=== PATIENT | female | born 1955 | race Caucasian/White ===

== ENCOUNTER 2017-03-07 15:18 | Emergency (ER) | payer OTHER ==
[~2017-03-07] VITALS: Ht 157.5 cm; Wt 72.7 kg
[2017-03-07 15:18] VITALS: BP 197/84; PULSE 51; RESP 21; O2SAT 97
[2017-03-07 16:07] LABS: BASOPHILS % (AUTO) 0.7 % (0-3); MONOCYTES % (AUTO) 7.6 % (4-12); Mean Corpuscular Hemoglobin 27.8 pg (27.0-35.0); Mean Corpuscular Volume 83.3 fL (81-100); NEUTROPHILS % (AUTO) 68.1 % (40-74); Platelet Count 313 bil/L (150-400)
[2017-03-07 16:08] VITALS: BP 176/68; PULSE 53; RESP 18; O2SAT 97
[2017-03-07 16:35] LABS: Magnesium 1.9 mg/dL (1.6-2.6)
[2017-03-07 16:37] LABS: TROPONIN T < 0.010 ug/L (0.0-0.011)
--- NOTE | 2017-03-07 16:39 | DRSVH ---
PROCEDURE: X-RAY CHEST ONE VIEW, PORTABLE ([id number]) INDICATIONS: cp TECHNIQUE: One view of the chest was acquired. COMPARISON: None. FINDINGS: Surgical changes and devices: None. Lungs and pleura: No pleural effusions or pneumothorax. Lungs are clear. Mediastinum: Mediastinal contours appear normal. Heart size is normal. Bones and chest wall: No suspicious bony lesions. Overlying soft tissues appear unremarkable. IMPRESSION: Mildly reduced inspiratory volume, no trauma found, source of chest pain is not seen. Dictated by: Jose Manuel Parada M.D. on 03/07/2017 at 16:37 Approved by: Jose Manuel Parada M.D. on 03/07/2017 at 16:37
--- NOTE | 2017-03-07 16:44 | ED.REPORT ---
HPI-General Illness Date of Service Mar 07, 2017 ED Provider: Sunil Wood MD The patient is a 61 year old female who presents to the ED from her PCP office following a hypertensive episode that began this morning. She reordered her BP this morning at 201/108. Associated symptoms include transient diaphoresis without exertion, nonvertiginous dizziness, nausea, anxiety. Patient currently takes Lisinopril and atenolol for her hypertension. She was being seen for her BP this morning and her PCP sent her to the ED for further evaluation. Recent stress test (1 year ago) was negative. Stress test was performed after she presented with burning chest pain that has been intermittent for the past year. Her systolic BP today has ranged from 150's - 190's throughout the past 12 hours and she has been keeping a log. She denies any recent changes in medication or history of DC. Patient denies any blurry vision, chest pain, unilateral weakness or headache. Nursing Notes Stated Complaint: HIGH BLOOD PRESSURE/SENT FROM [facility] Chief Complaint: General Complaint Nursing Notes Reviewed: Yes Allergies: Coded Allergies: No Known Allergies (Unverified , 03/07/17) General Time Seen by MD: 15:40 Chief Complaint Other (Hypertensive episode) Hx Obtained From: Patient Arrived By: Walk-in Sudden in Onset?: Yes Onset Occurred: 9 - 12 hours ago Symptom Duration: Since onset Associated with: Reports: Dizziness, Nausea, Denies: Chest pain, Headache, Vision change Pertinent Negative: Pt denies other symptoms Recent Healthcare: No recent hospitalization, Recent doctor visit Past Medical History Past Medical History Notes: PCP: [facility] Past Medical History Hypertension Angina Past Surgical History None reported. Smoking History Unknown if Ever Smoker Social History Other Social History: Good social support, Local resident Ambulatory Status Independent Review of Systems + unsteady gait Full Review of Systems Eyes: Denies: Blurred bilateral Cardiovascular: Reports: Chest pain GI: Reports: Nausea Skin: Reports Diaphoresis Neurologic: Reports: Dizziness, Denies: Headache, Vision change Complete sys rev & neg: except as marked. Physical Exam Vital Signs Vital Signs Date Time Temp Pulse Resp B/P Pulse Ox O2 Delivery O2 Flow Rate FiO2 03/07/17 18:51 51 16 167/80 97 Room Air 03/07/17 16:54 56 17 143/81 99 Room Air 03/07/17 16:08 53 18 176/68 97 Room Air 03/07/17 15:18 36.8 51 21 197/84 97 Room Air Initial VS: Reviewed Neck: Supple, Non-tender, Full range of motion Extremities: Vascular intact, Neuro intact, No swelling, No tenderness Skin: Warm, Dry, No cyanosis Neurologic: Alert, Oriented, Nonfocal Psychiatric: Mood/affect normal, Behavior normal, Normal thought content General/Constitutional: Awake, Alert, No acute distress, Well appearing, Well developed Head / Eyes: Atraumatic, Normocephalic, PERRL Respiratory / Chest: Atraumatic, Breath sounds NL, Breath sounds = bilat, No respiratory distress Cardiovascular: Heart rate NL, Regular rhythm, Heart sounds NL, No gallop, No murmurs, No rubs Abdomen: Atraumatic, Soft, Non-tender, No distention Interpretation & Diagnostics Lab Results Interpretation Result Diagram: 03/07/17 1555 03/07/17 1555 Test 03/07/17 15:55 White Blood Count 8.5th/mm3 (3.8-10.1) Red Blood Count 4.49mil/mm3 (3.90-5.20) Hemoglobin 12.5g/dL (12.0-15.6) Hematocrit 37.4% (35.0-46.0) Mean Corpuscular Volume 83.3fL (81-100) Mean Corpuscular Hemoglobin 27.8pg (27.0-35.0) Mean Corpuscular Hemoglobin Concent 33.4% (32.0-37.0) Red Cell Distribution Width 13.4% (12.3-15.4) Platelet Count 313bil/L (150-400) Neutrophils (%) (Auto) 68.1% (40-74) Lymphocytes (%) (Auto) 21.5% (14-46) Monocytes (%) (Auto) 7.6% (4-12) Eosinophils (%) (Auto) 2.0% (0-5) Basophils (%) (Auto) 0.7% (0-3) Sodium Level 140mEq/L (134-144) Potassium Level 4.1mEq/L (3.5-5.2) Chloride Level 102mEq/L (97-108) Carbon Dioxide Level 20mmol/L (18-29) Blood Urea Nitrogen 31mg/dL (8-27) Creatinine 1.31mg/dL (0.57-1.00) Estimat Glomerular Filtration Rate 59mL/min (>59) Glucose Level 102mg/dL (60-99) Calcium Level 9.4mg/dL (8.5-10.1) Magnesium Level 1.9mg/dL (1.6-2.6) Total Bilirubin 0.2mg/dL (0.0-1.2) Aspartate Amino Transf (AST/SGOT) 23U/L (0-50) Alanine Aminotransferase (ALT/SGPT) 21U/L (0-32) Alkaline Phosphatase 105U/L (25-165) Troponin T < 0.010ug/L (0.0-0.011) Total Protein 7.5g/dL (6.4-8.4) Albumin 4.1g/dL (3.4-5.0) Thyroid Stimulating Hormone (TSH) 4.130uIU/mL (0.450-4.500) ECG Interpretation ECG Interpretation: Sinus rhythm Rate 54 bpm Left axis deviation no ST elevation nonspecific T wave abnormalities and inversions in the anterior lateral leads no prior for comparison Time: 16:35 Interpreted by: ED physician X-Ray Chest Interpretation Chest Xray Interpretation: IMPRESSION: Mildly reduced inspiratory volume, no trauma found, source of chest pain is not seen. Dictated by: Jose Manuel Parada M.D. on 03/07/2017 at 16:37 Interpretation / Wet Read by: Interpret - Radiologist Re-Eval/Medical Decision Med Decision/Clinical Course The patient is a 61 year old female who presents to the ED from her PCP office following a hypertensive episode that began this morning. She reordered her BP this morning at 201/108. Associated symptoms include transient diaphoresis without exertion, nonvertiginous dizziness, nausea, anxiety. Patient currently takes Lisinopril and atenolol for her hypertension. She was being seen for her BP this morning and her PCP sent her to the ED for further evaluation. Recent stress test (1 year ago) was negative. Stress test was performed after she presented with burning chest pain that has been intermittent for the past year. Her systolic BP today has ranged from 150's - 190's throughout the past 12 hours and she has been keeping a log. She denies any recent changes in medication or history of DC. Patient denies any blurry vision, chest pain, unilateral weakness or headache. EKG: Sinus rhythm Rate 54 bpm Left axis deviation no ST elevation nonspecific T wave abnormalities and inversions in the anterior lateral leads no prior for comparison Laboratory notable as below: CBC unremarkable CMP BUN - 31 Creat - 1.31 elevated from baseline Trop negative Chest IMPRESSION: Mildly reduced inspiratory volume, no trauma found, source of chest pain is not seen. Patient presents with significant concern about her blood pressure. While she did have one markedly elevated blood pressure reading in the 200s over the 100s the remainder of her blood pressure readings throughout the day today have ranged from the 140s to 170s systolic. During the emergency department she is not markedly hypertensive. She has no symptoms to actively suggest hypertensive emergency nor is her blood pressure consistent with hypertensive emergency. I do not feel that neuro imaging is indicated based upon her presentation at this time. I see no evidence of significant kidney injury or evidence of cardiac ischemia. Patient reports feeling better after discussing this and elected to be discharged. I attempted to contact her primary care physician though I was unsuccessful. She will call her PCP tomorrow morning to arrange for close follow-up appointment. Return precautions were reviewed in detail including an extensive discussion of the symptoms of hypertensive urgency /emergency. Prior to discharge follow-up and return precautions were reviewed in detail with the patient who verbalized understanding and agreement with the plan. The patient was discharged in stable condition. Time of Eval: 18:28 Patient Status: Condition improved Re-Evaluation/Progress Note: Systolic Bp in 140's. The patient's symptoms have improved upon recheck. All questions are addressed. She is informed of her results and diagnosis. The patient understands and agrees with the intended treatment plan. Counseled Regarding: Diagnosis, Lab results, Need for follow-up, When/why to return to ED Discharge & Departure Primary Impression: Hypertension Hypertension type: unspecified secondary hypertension Qualified Code: I15.9 - Secondary hypertension, unspecified Additional Impressions: Hypertensive urgency Panic anxiety syndrome Disposition: Home Discharge Condition All VS Reviewed: Yes Condition: Stable Patient Instructions: Anxiety (ED), Hypertension (ED) Additional Instructions: Thank you for seeking care at emergency room. It is difficult for us to make definitive diagnoses in the ED but we believe that your symptoms are due to a hypertension and anxiety. Our primary goal today in the ED was to evaluate you for any life-threatening conditions. Your evaluation was reassuring. Continue to take home medication as directed. You should follow-up with closely your primary nurse practitioner in the next 2 days to discuss blood pressure medication. You should return to the ED immediately if you develop a blood pressure over 200/100, fevers, vomiting, cough, shortness of breath, blurry vision, chest pain , lightheadedness, weakness or any other concerning signs or symptoms. Thank you for letting us partake in your care today. Referrals: Arely Hi (PCP) Scribe Attestation Portions of this note were transcribed by Freida Barboza. I, Dr. Wood personally performed the history, physical exam and medical decision-making; I reviewed and confirmed the accuracy of the information in the transcribed note. copies to: Arely Hi Beck O MD Mar 07, 2017 16:44 FREIDA BARBOZA Mar 07, 2017 16:53
[2017-03-07 16:54] VITALS: BP 143/81; PULSE 56; RESP 17; O2SAT 99
[2017-03-07 18:51] VITALS: BP 167/80; PULSE 51; RESP 16; O2SAT 97
== END 2017-03-07 18:52 | disposition home or self-care (01) ==
LOC: SED 15:18
DX: I15.9 Secondary hypertension, unspecified (principal); I16.0 Hypertensive urgency; F41.0 Panic disorder [episodic paroxysmal anxiety]; I20.9 Angina pectoris, unspecified